=== PATIENT | female | born 1975 | race Caucasian/White ===

== ENCOUNTER 2021-04-09 15:08 | Outpatient (REF) | payer OTHER, SELFPAY ==
--- NOTE | ~2021-04-09 | XR_ITS ---
EXAMINATION: XR LUMBOSACRAL SPINE CLINICAL INFORMATION: Back pain. COMPARISON: None TECHNIQUE: Three views of the lumbosacral spine. FINDINGS: There is a mild convex right thoracolumbar scoliosis. Alignment is otherwise unremarkable. Vertebral body heights are maintained. Disc spaces are normal. Posterior elements are intact. The paravertebral soft tissues are unremarkable. XR/XR lumbar spine 2-3V IMPRESSION: Mild scoliosis. Otherwise unremarkable.
== END 2021-04-09 15:09 | disposition home or self-care (01) ==
LOC: HO.XRAY 15:08
PROVIDERS: PCP Family Medicine; Visit Provider Psychiatry & Neurology Neurology
DX: M54.50 Low back pain, unspecified (principal)
CPT/HCPCS: 72100

== ENCOUNTER → 2021-05-18 10:57 | Outpatient (BNVA) | payer OTHER, SELFPAY | PROVIDERS: PCP Family Medicine; Visit Provider Psychiatry & Neurology Neurology | DX: M54.9 Dorsalgia, unspecified (principal); R20.2 Paresthesia of skin | CPT/HCPCS: 99212 ==

== ENCOUNTER 2021-05-26 19:20 | Outpatient (REF) | payer OTHER, SELFPAY ==
--- NOTE | ~2021-05-26 | MR_ITS ---
EXAMINATION: MR LUMBAR SPINE WITHOUT CONTRAST CLINICAL INFORMATION: Paresthesia of the skin. COMPARISON: Lumbar spine radiographs from 04/09/2021. TECHNIQUE: MRI of the lumbar spine was obtained using routine sequences without contrast. FINDINGS: Mild right convex curvature of the lumbar spine. Minimal degenerative grade 1 anterolisthesis of L4 on L5. Minimal degenerative retrolisthesis of L5 on S1. Otherwise, normal anatomic alignment. Moderate degenerative disc disease at L4-L5 and L5-S1. Mild degenerative disc disease at T11-T12 and L3-L4. Small T2 hyperintense annular fissure at L5-S1. Associated mixed Modic type discogenic endplate changes including mild Modic type I discogenic edema at L4-L5 and L5-S1. No additional suspicious marrow edema. The vertebral body heights are largely maintained. The conus medullaris terminates at the level of L2. The distal spinal cord is normal in appearance. No significant abnormalities of the paraspinal musculature. Limited evaluation of the intra-abdominal structures without significant abnormalities. The abdominal aorta is of normal contour and caliber. AXIAL SPINAL LEVELS: L1-L2: Normal annular contour. There is mild bilateral facet joint arthropathy. There is no neural foraminal stenosis. There is no spinal canal stenosis. L2-L3: Normal annular contour. There is mild bilateral facet joint arthropathy. There is no neural foraminal stenosis. There is no spinal canal stenosis. L3-L4: Normal annular contour. There is mild bilateral facet joint arthropathy. There is mild bilateral neural foraminal stenosis. There is no spinal canal stenosis. L4-L5: Mild diffuse disc bulge. There is moderate left and mild right facet joint arthropathy. There is mild bilateral neural foraminal stenosis. There is narrowing of the subarticular zones with no overt spinal canal stenosis centrally. L5-S1: Mild diffuse disc bulge with superimposed shallow central disc protrusion. There is moderate right and mild left facet joint arthropathy. There is mild bilateral neural foraminal stenosis. There is no spinal canal stenosis. MR/MR lumbar spine wo con IMPRESSION: Mild to moderate multilevel degenerative spondyloarthropathy of the lumbar spine as described in detail above. Most notably, there are mild neural foraminal stenoses at L4-L5 and L5-S1. Narrowings of the subarticular zones at L4-L5. No overt spinal canal stenosis centrally.
== END 2021-05-26 19:21 | disposition home or self-care (01) ==
LOC: HO.MRI 19:20
PROVIDERS: Visit Provider Psychiatry & Neurology Neurology
DX: R20.2 Paresthesia of skin (principal); M54.9 Dorsalgia, unspecified
CPT/HCPCS: 72148

== ENCOUNTER → 2021-07-17 13:01 | Outpatient (BNVA) | payer OTHER, SELFPAY | PROVIDERS: PCP Family Medicine; Visit Provider Psychiatry & Neurology Neurology | DX: M54.9 Dorsalgia, unspecified (principal); R20.2 Paresthesia of skin | CPT/HCPCS: 99212 ==